=== PATIENT | female | born 1995 | race Caucasian/White ===

== ENCOUNTER 2018-03-16 14:52 | Emergency (ER) | payer SELFPAY ==
--- NOTE | 2018-03-16 15:17 | ED Physician Chart ---
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 THIS HAPPENED APPROXIMATELY AN HOUR PRIOR TO ADMISSION. PATIENT WAS REFERRED TO THE EMERGENCY DEPARTMENT FOR EVALUATION AND TREATMENT BY HER EMPLOYER. BLEEDING WAS CONTROLLED BY [employer] AND THERE IS NO ACTIVE BLEEDING AT THE TIME OF EVALUATION. THE PATIENT IS UNSURE OF HER TETANUS PROTECTION AND IT MAY BE OVER 9 YEARS.THE PATIENT DECLINEDGETTING A TETANUS BOOSTERAND SAID SHE WOULD FOLLOW-UP WITH [facility] THAT SHE IS CURRENT ON HER IMMUNIZATIONS. Allergies:: Allergies Allergy/AdvReac Type Severity Reaction Status Date / Time No Known Allergies Allergy Verified 03/16/18 15:04 Vitals:: Vital Signs - 8 hr 03/16/18 15:04 Temp 98.5 F HR 82 RR 18 BP 116/70 O2 Sat % 98 ED Review of Systems - Review of Systems General/Constitutional: No fever, No chills, No weakness Skin: No rash Head: No light-headedness Eyes: No diplopia Pulmonary: No cough, No sputum GI: No nausea, No vomiting, No pain G/U: No frequency, No hematuria Endocrine: No polyuria, No polydipsia Psychiatric: No prior psych history, No anxiety, No suicidal ideation Allergic/Immuno: No urticaria Neurological: No focal symptoms, No weakness, No paresthesia Family Medical History - Family Member Mother History Unknown: Yes ED Physical Exam - Physical Examination General/Constitutional: Awake, Well-developed, well-nourished, Alert, No distress, GCS 15, Non-toxic appearing, Ambulatory Head: Atraumatic Eyes: PERRL Skin: No ecchymosis, No lymphadenopathy Other Skin comments:: THE PATIENT HAD A 7 MMLINEAR LACERATIONOVER THEDISTAL PADOF THE LEFT RING FINGER.IT WAS CLEANAND THERE WAS NOACTIVE BLEEDING AT THE TIME OF EVALUATION. ENMT: External ears, nose nl Respiratory: Nl effort/Exclusion, Clear to Auscultation, No Wheeze/Rhonchi/Rales Cardio Vascular: No murmur, gallop, rubs, NL S1 S2 GI: No tenderness/rebounding/guarding Neuro/Psych: Alert/oriented, DTR's symmetric, No focal deficits (THE PHYSICAL EXAMINATION WAS LIMITED DUE TO THE LOCALIZED NATUREOF THE CHIEF COMPLAINT) ED Labs/Radiology/EKG Results - Lab Results Results: NO RADIOGRAPHIC OR LABORATORY STUDIES WERE INDICATED. ED Assessment - Assessment General Assessment: CASE SUMMARY: THIS 22-YEAR-OLD FEMALEWAS REFER TO THE EMERGENCY DEPARTMENTBY HER EMPLOYERWHEN SHE SUSTAINEDHEY MINOR LACERATIONTO THE TIP OF HER LEFT RING FINGER. THE LACERATION WAS MEASURED AT HAND WAS 7 MM IN LENGTHINVOLVING THE PAD OF THELEFT RING FINGER.THERE WAS NO ACTIVE BLEEDING AT THE TIME OF EVALUATIONBUT AFTER CLEANING WITHPROVIDIAN IODINETHERE WAS MILD BLEEDING.THIS WAS ADDRESSEDBY USING DERMA BONDTO CLOSE THE WOUND.SHE WAS THENTREATEDWITH A STERILE DRESSING.SHE DECLINED TETANUS PROPHYLAXISAND SAID SHE WOULD FOLLOW UP WITH THE [facility]. DISCHARGED IN STABLE CONDITION. WOUND RECHECK IN TWO DAYS. MDM DDX FOR WOUND TO FINGER: NO TENDON LACERATION BASED ON PHYSICAL EXAMINATION. NO SKIN AVULSION BASED ON PHYSICAL EXAMINATION. NO FOREIGN BODY CONCERNBASED ON THE MECHANISM OF INJURY. ED Septic Shock - . Is Septic Shock (SBP<90, OR Lactate>4 mmol\L) present?: No - <6hrs of presentation: Vital Signs: Vital Signs - 8 hr 03/16/18 15:04 Temp 98.5 F HR 82 RR 18 BP 116/70 O2 Sat % 98 ED Discharge Plan - Patient Disposition Admit/Discharge/Transfer: PT DISCHARGED HOME Condition at Disposition: Stable Instructions: Fingertip Laceration Additional Instructions: Wound check 2 days. Return to ER if symptoms worsen.
== END 2018-03-16 15:40 | disposition home or self-care (01) ==
LOC: ER 14:52
DX: S61.215A Laceration without foreign body of left ring finger without damage to nail, initial encounter (principal); W26.0XXA Contact with knife, initial encounter; Y93.89 Activity, other specified; Y92.89 Other specified places as the place of occurrence of the external cause; Y99.8 Other external cause status
CPT/HCPCS: 12001; Z7502